=== PATIENT | female | born 1985 | race Caucasian/White ===

== ENCOUNTER 2017-03-12 17:16 | Emergency (ER) | payer BC, SELFPAY ==
[2017-03-12] MEDS ORDERED: Ondansetron HCl/PF 4 MG/2 ML Vial ONE ×3 (17:34→20:41)
[2017-03-12 17:59] LABS: #Basophils 0.1 thou/uL (0.0-0.2); #Eosinphils 0.3 thou/uL (0.0-0.7); #Lymphocytes 3.9 thou/uL (1.20-3.40); #Monocytes 0.6 thou/uL (0.11-0.59); %Basophils 0.7 % (0.0-1.0); %Eosinophils 2.2 % (0.0-10.0); %Monocytes 4.7 % (0.0-10.0); Hematocrit 42.3 % (36.0-47.0); Mean Platelet Volume 6.8 fL (7.4-10.4); Red Blood Cell (RBC) Count 4.77 mill/uL (4.20-5.40); White Blood Cell (WBC) Count 11.8 thou/uL (4.8-10.8)
[2017-03-12 18:10] LABS: Bilirubin Negative (Negative); Blood, Urine Negative (Negative); Glucose, Urine (Dipstick) Negative (Negative); Ketone, Urine Negative (Negative); Nitrite Negative (Negative); Protein, Urine (Dipstick) Negative (Neg-Trace)
[2017-03-12 18:17] LABS: ALT (SGPT) 31 U/L (8-55); AST (SGOT) 22 U/L (5-34); Alkaline Phosphatase 149 U/L (40-150); Anion Gap 14 mmol/L (10-20); BUN (Urea Nitrogen) 7 mg/dL (7.0-18.7); Bilirubin, Total 0.2 mg/dL (0.2-1.2); Calc. Creatinine Clearance 0 mL/min (70-130); Calcium 9.3 mg/dL (7.8-10.44); Carbon Dioxide 24 mmol/L (22-29); Chloride 105 mmol/L (98-107); Estimated GFR-MDRD 84; Globulin 3.8 g/dL (2.4-3.5); Lipase 16 U/L (8-78); Protein, Total 7.8 g/dL (6.0-8.3)
--- NOTE | 2017-03-12 21:50 | ULT ---
RIGHT UPPER QUADRANT ULTRASOUND: 03/12/17 HISTORY: 31-year-old female with right upper quadrant pain. The gallbladder demonstrates no evidence of gallstones. The gallbladder wall is borderline thickened but the patient did eat approximately five hours prior to this examination. Common bile duct 0.4 cm . Liver echotexture is slightly coarse. Visualized pancreas and right kidney are unremarkable. IMPRESSION: Minimal gallbladder wall thickening without evidence for gallstones. The patient had eaten prior to this examination. Consideration for a followup gallbladder ultrasound after the patient has been n.p.o. for at least 1 2 hours. No other significant abnormality. Mildly coarse liver echotexture. POS: [facility]
--- NOTE | 2017-03-12 22:21 | RAD ---
CHEST ONE VIEW ABDOMEN TWO VIEWS: 03/12/17 HISTORY: 31-year-old female with upper abdominal pain. No significant acute process in the chest. Gas and fecal material in the colon. No free intraperitoneal air, overt calculus, bowel obstruction, or other significant acute process. IMPRESSION: Unremarkable chest one view, abdomen two views. POS: [facility]
== END 2017-03-12 21:32 | disposition home or self-care (01) ==
LOC: ERS 17:16
DX: K59.00 Constipation, unspecified (principal); R10.11 Right upper quadrant pain; K21.9 Gastro-esophageal reflux disease without esophagitis; J45.909 Unspecified asthma, uncomplicated
CPT/HCPCS: 74022; 76705; 80053; 81003; 83690; 84703; 85025; 96361; 96374; 96375; 96376; J2270; J2405